=== PATIENT | male | born 1970 | race Two or more races ===

== ENCOUNTER 2023-07-25 05:37 | Day surgery (SDC) | payer OTHER ==
[~2023-07-25 05:37] MED LIST: GABAPENTIN300 M2 PO; PAROXETINE PO
[2023-07-25] MEDS ORDERED: TRAM1TAB98 PO (14:32)
== END 2023-07-25 17:50 | disposition home or self-care (01) ==
LOC: CIR.AMB 05:37
PROVIDERS: ATTEND Surgery
DX: C18.4 Malignant neoplasm of transverse colon (principal); E66.9 Obesity, unspecified; R59.0 Localized enlarged lymph nodes; Z20.822 Contact with and (suspected) exposure to COVID-19

== ENCOUNTER 2023-09-27 10:42 | Inpatient (IN) | payer OTHER ==
[~2023-09-27] VITALS: Ht 172.7 cm; Wt 127.0 kg
[~2023-09-27 10:42] MED LIST changes: +TRAM1TAB98 PO
[2023-09-27 13:54] LABS: HEMATOCRIT 36.2 % (39.0-48.0); HEMOGLOBIN 11.5 g/dL (13-16.00); MEAN CORPUSCULAR HEMOGLOBIN 21.9 pg (27.00-32.0); MEAN CORPUSCULAR HGB CONC 31.8 g/dl (32.0-36.0); PLATELET COUNT 384 K/uL (150-450); RED BLOOD COUNT 5.27 M/uL (4.00-6.00); RED CELL DISTRIBUTION WIDTH 23.6 % (11.5-14.5)
[2023-09-27 13:55] LABS: MEAN CELL VOLUME 68.7 fL (80.0-100.00)
[2023-09-27 14:13] LABS: INR 1.09; PARTIAL THROMBOPLASTIN TIME 31.4 SECONDS (22.0-34.0); PROTHROMBIN TIME 11.4 SECONDS (9.0-11.5)
[2023-09-27 14:19] LABS: ALBUMIN 3.8 gm/dL (3.4-5.0); BILIRUBIN TOTAL 1.04 mg/dL (0.3-1.2); BILIRUBIN,CONJUGATED 0.25 mg/dL (0.0-0.2); BILIRUBIN,UNCONJUGATED 0.79 mg/dL (0.0-0.6); CALCIUM 9.8 mg/dL (8.5-10.1); CREATININE SERUM 0.92 mg/dL (0.70-1.30); GFR 86.73; POTASSIUM 4.2 mEq/L (3.5-5.1); TOTAL PROTEIN 8.3 gm/dL (6.4-8.2)
[2023-09-27 21:02] LABS: LDH 307 U/L (87-241); PHOSPHOKINASE CREATININE 35 U/L (39-308)
[2023-09-27 21:14] LABS: PH,URINE 5.5 (5.0-8.0); URINE APPEARANCE Clear; URINE BILIRRUBIN Negative (NEGATIVE); URINE BLOOD Negative; URINE COLOR Dark Yellow; URINE GLUCOSE Negative (NEGATIVE); URINE LEUKOCYTE Negative; URINE NITRATE Negative; URINE PROTEIN Trace (NEGATIVE)
[2023-09-27 21:15] LABS: URINE EPITHELIAL CELLS 9.4 uL (0.0-38.8); URINE RBC 7.1 uL (0.0-20.8); URINE WBC 6.3 uL (0.0-23.2)
[2023-09-27 21:17] LABS: URINE BACTERIA 2.5 uL (0.0-1933)
[2023-09-28 08:27] LABS: HEMATOCRIT 35.1 % (39.0-48.0); MEAN CORPUSCULAR HGB CONC 31.7 g/dl (32.0-36.0); RED BLOOD COUNT 5.13 M/uL (4.00-6.00); RED CELL DISTRIBUTION WIDTH 23.3 % (11.5-14.5)
[2023-09-28 08:30] LABS: LDH 308 U/L (87-241); PHOSPHOKINASE CREATININE 38 U/L (39-308)
[2023-09-28 08:33] LABS: ALBUMIN 3.5 gm/dL (3.4-5.0); BILIRUBIN TOTAL 1.34 mg/dL (0.3-1.2); BILIRUBIN,CONJUGATED 0.31 mg/dL (0.0-0.2); BILIRUBIN,UNCONJUGATED 1.03 mg/dL (0.0-0.6); CALCIUM 8.8 mg/dL (8.5-10.1); CHOL HDL RATIO 2.7 (0-5.0); CREATININE SERUM 0.93 mg/dL (0.70-1.30); GFR 85.66; POTASSIUM 4.41 mEq/L (3.5-5.1); TOTAL PROTEIN 7.5 gm/dL (6.4-8.2)
[2023-09-28 08:36] LABS: INR 1.16
[2023-09-28 08:37] LABS: C-REACTIVE PROTEIN 4.62 MG/DL (0.00-0.29)
[2023-09-28 09:37] LABS: HEMOGLOBIN 11.1 g/dL (13-16.00); MEAN CELL VOLUME 68.4 fL (80.0-100.00); MEAN CORPUSCULAR HEMOGLOBIN 21.6 pg (27.00-32.0)
[2023-09-28 09:38] LABS: PLATELET COUNT 382 K/uL (150-450)
[2023-09-28 09:55] LABS: ERYTHROCYTE SEDIMENTATION RATE 108 mm/hr
[2023-09-28 12:28] LABS: LDH 326 U/L (87-241); PHOSPHOKINASE CREATININE 41 U/L (39-308)
[2023-09-28 14:16] LABS: PH,URINE 5.5 (5.0-8.0); URINE APPEARANCE Clear; URINE BILIRRUBIN Negative (NEGATIVE); URINE BLOOD Trace; URINE COLOR Dark Yellow; URINE GLUCOSE Negative (NEGATIVE); URINE LEUKOCYTE Negative; URINE NITRATE Negative
[2023-09-28 14:17] LABS: URINE BACTERIA 70.5 uL (0.0-1933); URINE EPITHELIAL CELLS 16.8 uL (0.0-38.8); URINE RBC 93.1 uL (0.0-20.8); URINE WBC 13.6 uL (0.0-23.2)
[2023-09-28 14:18] LABS: URINE PROTEIN 100 (NEGATIVE)
[2023-09-28 20:53] LABS: ob POSITIVE (NEGATIVE)
[2023-09-30 06:14] LABS: HEMATOCRIT 32.9 % (39.0-48.0); HEMOGLOBIN 10.4 g/dL (13-16.00); MEAN CORPUSCULAR HEMOGLOBIN 21.5 pg (27.00-32.0); MEAN CORPUSCULAR HGB CONC 31.6 g/dl (32.0-36.0); PLATELET COUNT 302 K/uL (150-450); RED BLOOD COUNT 4.83 M/uL (4.00-6.00); RED CELL DISTRIBUTION WIDTH 23.9 % (11.5-14.5)
[2023-09-30 06:50] LABS: MEAN CELL VOLUME 68.1 fL (80.0-100.00)
[2023-09-30 06:58] LABS: ALBUMIN 3.1 gm/dL (3.4-5.0); BILIRUBIN TOTAL 0.83 mg/dL (0.3-1.2); CALCIUM 8.7 mg/dL (8.5-10.1); CREATININE SERUM 1.01 mg/dL (0.70-1.30); GFR 77.88; GLOBULINA 3.9 G/DL (2.4-3.5); MAGNESIUM 2.3 mg/dL (1.8-2.4); PHOSPHOROUS 3.3 mg/dL (2.5-4.9); POTASSIUM 3.94 mEq/L (3.5-5.1)
[2023-09-30] MEDS ORDERED: INTEGRA PLUS C1 EAC1 (08:53)
[2023-09-30] MEDS ORDERED: PAROXETINE HCL10 MG (08:53)
[2023-09-30] MEDS ORDERED: GABAPENTIN300 M2 (08:53)
== END 2023-10-04 21:17 | disposition home or self-care (01) | DRG 389 ==
LOC: ER 10:42 → MEDJ 19:17
PROVIDERS: General Practice; ADMIT Specialist; ATTEND Specialist
PROC: BW21YZZ Computerized Tomography (CT Scan) of Abdomen and Pelvis using Other Contrast (ICD-10-PCS; principal; 2023-09-29)
DX: K56.690 Other partial intestinal obstruction (principal); C18.5 Malignant neoplasm of splenic flexure; C78.6 Secondary malignant neoplasm of retroperitoneum and peritoneum; E86.0 Dehydration

== ENCOUNTER 2023-10-23 00:07 | Inpatient (IN) | payer OTHER ==
[~2023-10-23] VITALS: Ht 172.7 cm; Wt 113.4 kg
[~2023-10-23 00:07] MED LIST changes: +GABAPENTIN300 M2; +INTEGRA PLUS C1 EAC1; +PAROXETINE HCL10 MG
[2023-10-23] MEDS ORDERED: PROMETHAZINE HCL 50 MG/ML AMPUL IM STA (01:28)
[2023-10-23] MEDS ORDERED: HYOSCYAMINE SULFATE 0.125 MG TAB.SUBL SL STA (01:28)
[2023-10-23] MEDS ORDERED: FAMOTIDINE/PF 20 MG/2 ML VIAL IV PUSH STA (01:30)
[2023-10-23] MEDS ORDERED: 0.9 % SODIUM CHLORIDE 1,000 ML IV ONE (01:30)
[2023-10-23] MEDS ORDERED: MEPERIDINE HCL/PF 50 MG/ML VIAL IM STA (01:31)
[2023-10-23 03:09] LABS: CALCIUM 9.4 mg/dL (8.5-10.1); CREATININE SERUM 0.88 mg/dL (0.70-1.30); GFR 91.3; HEMATOCRIT 37.1 % (39.0-48.0); MEAN CORPUSCULAR HEMOGLOBIN 22.3 pg (27.00-32.0); MEAN CORPUSCULAR HGB CONC 32.3 g/dl (32.0-36.0); PLATELET COUNT 258 K/uL (150-450); POTASSIUM 3.85 mEq/L (3.5-5.1); RED BLOOD COUNT 5.37 M/uL (4.00-6.00)
[2023-10-23 03:29] LABS: RED CELL DISTRIBUTION WIDTH 28.4 % (11.5-14.5)
[2023-10-23] MEDS ORDERED: MORPHINE SULFATE 4 MG/ML VIAL IV STA (08:28)
[2023-10-23] MEDS ORDERED: MORPHINE SULFATE 4 MG/ML CARTRIDGE IV STA (14:10)
[2023-10-23] MEDS ORDERED: ONDANSETRON HCL 4 MG in 0.9 % SODIUM CHLORIDE 50 ML IV PRN (17:45)
[2023-10-23] MEDS ORDERED: 0.9 % SODIUM CHLORIDE 1,000 ML IV SCH (17:45)
[2023-10-23 17:57] LABS: URINE APPEARANCE Cloudy; URINE BILIRRUBIN Negative (NEGATIVE); URINE BLOOD Negative; URINE COLOR Yellow; URINE GLUCOSE Negative (NEGATIVE); URINE LEUKOCYTE Trace; URINE NITRATE Negative; URINE PROTEIN Trace (NEGATIVE)
[2023-10-23] MEDS ORDERED: MEPERIDINE HCL/PF 25 MG/ML VIAL IM PRN ×2 (18:00→21:23)
[2023-10-23] MEDS ORDERED: ACETAMINOPHEN 500 MG GEL..CAP PO PRN (18:00)
[2023-10-23] MEDS ORDERED: PROMETHAZINE HCL 25 MG/ML AMPUL IM ONE (18:00)
[2023-10-23] MEDS ORDERED: PIPERACILLIN/TAZOBACTAM SODIUM 3.375 GM in DEXTROSE 5 % IN WATER 100 ML IV SCH (18:00)
[2023-10-23 18:01] LABS: URINE BACTERIA 27.7 uL (0.0-1933); URINE EPITHELIAL CELLS 36.3 uL (0.0-38.8); URINE RBC 23.8 uL (0.0-20.8); URINE WBC 5.4 uL (0.0-23.2)
[2023-10-23 18:20] LABS: URINE MUCUS MODERATE
[2023-10-23 19:40] LABS: INR 1.99; PARTIAL THROMBOPLASTIN TIME 34.9 SECONDS (22.0-34.0); PROTHROMBIN TIME 19.9 SECONDS (9.0-11.5)
[2023-10-23] MEDS ORDERED: MEPERIDINE HCL 25 MG/ML AMPUL IM STA (21:23)
[2023-10-24] MEDS ORDERED: FAMOTIDINE/PF 20 MG in 0.9 % SODIUM CHLORIDE 8 ML IV PUSH SCH (09:00)
[2023-10-24] MEDS ORDERED: AA 4.25%/CAL/LYTES/DEXT 5% 1,000 ML PERIFERAL SCH (17:00)
[2023-10-24 22:33] LABS: ANION GAP 14 (10.0-20.0); BLOOD UREA NITROGEN 18 mg/dL (7-18); BUN CREA RATIO 24 (7.0-25.0); CALCIUM 8.4 mg/dL (8.5-10.1); CARBON DIOXIDE 22 mEq/L (21-32); CHLORIDE 105 mmol/L (98-107); CREATININE SERUM 0.75 mg/dL (0.70-1.30); GFR 109.79; GLUCOSE FASTING 108 mg/dL (65-100); OSMOLALITY SERUM 276 MOSM/KG (275-295); POTASSIUM 4.06 mEq/L (3.5-5.1); SODIUM 137 mmol/L (136-145); TRIGLYCERIDES 78 mg/dL (0-150); VLDL 15 (0-39)
[2023-10-24 22:34] LABS: CHOL HDL RATIO 5.6 (0-5.0); CHOLESTEROL < 50 mg/dL (0-200); LDL 25 mg/dl (0-130)
[2023-10-24 22:35] LABS: HDL 9 mg/dl (40-60)
[2023-10-25] MEDS ORDERED: MORPHINE SULFATE 4 MG/ML CARTRIDGE IV PRN (08:30)
[2023-10-25 15:47] LABS: BILIRUBIN TOTAL 0.75 mg/dL (0.3-1.2); CALCIUM 8.4 mg/dL (8.5-10.1); CREATININE SERUM 0.7 mg/dL (0.70-1.30); GFR 118.89; GLOBULINA 4.1 G/DL (2.4-3.5); MAGNESIUM 2.1 mg/dL (1.8-2.4); POTASSIUM 3.95 mEq/L (3.5-5.1); TOTAL PROTEIN 6.1 gm/dL (6.4-8.2)
[2023-10-25 16:06] LABS: PHOSPHOROUS 1.9 mg/dL (2.5-4.9)
[2023-10-25 16:52] LABS: INR 1.39; PARTIAL THROMBOPLASTIN TIME 29.4 SECONDS (22.0-34.0); PROTHROMBIN TIME 14.2 SECONDS (9.0-11.5)
[2023-10-26 11:32] LABS: HEMATOCRIT 34.8 % (39.0-48.0); HEMOGLOBIN 11.1 g/dL (13-16.00); MEAN CELL VOLUME 70.2 fL (80.0-100.00); MEAN CORPUSCULAR HEMOGLOBIN 22.4 pg (27.00-32.0); PLATELET COUNT 316 K/uL (150-450); RED BLOOD COUNT 4.96 M/uL (4.00-6.00)
[2023-10-26 12:03] LABS: INR 1.32; PROTHROMBIN TIME 13.6 SECONDS (9.0-11.5)
[2023-10-26 12:24] LABS: ALBUMIN 1.9 gm/dL (3.4-5.0); BILIRUBIN TOTAL 0.68 mg/dL (0.3-1.2); CALCIUM 8.4 mg/dL (8.5-10.1); CREATININE SERUM 0.75 mg/dL (0.70-1.30); GFR 109.79; GLOBULINA 4.3 G/DL (2.4-3.5); POTASSIUM 4.94 mEq/L (3.5-5.1); TOTAL PROTEIN 6.2 gm/dL (6.4-8.2)
[2023-10-27 07:36] LABS: HEMATOCRIT 33.9 % (39.0-48.0); HEMOGLOBIN 10.9 g/dL (13-16.00); MEAN CORPUSCULAR HEMOGLOBIN 22.3 pg (27.00-32.0); MEAN CORPUSCULAR HGB CONC 32.1 g/dl (32.0-36.0); PLATELET COUNT 280 K/uL (150-450); RED BLOOD COUNT 4.88 M/uL (4.00-6.00)
[2023-10-27 08:13] LABS: INR 1.54; PROTHROMBIN TIME 15.7 SECONDS (9.0-11.5)
[2023-10-27 09:00] LABS: MEAN CELL VOLUME 69.6 fL (80.0-100.00); RED CELL DISTRIBUTION WIDTH 29.6 % (11.5-14.5)
[2023-10-27] MEDS ORDERED: MORPHINE SULFATE 4 MG/ML CARTRIDGE IV PRN (09:30)
[2023-10-28 07:23] LABS: HEMATOCRIT 31.2 % (39.0-48.0); HEMOGLOBIN 9.9 g/dL (13-16.00); MEAN CORPUSCULAR HEMOGLOBIN 22.1 pg (27.00-32.0); MEAN CORPUSCULAR HGB CONC 31.8 g/dl (32.0-36.0); PLATELET COUNT 264 K/uL (150-450); RED BLOOD COUNT 4.48 M/uL (4.00-6.00)
[2023-10-28 07:42] LABS: ALBUMIN 1.6 gm/dL (3.4-5.0); ALKALINE PHOSPHATASE 58 U/L (50-136); ALT/SGPT 15 U/L (12-78); AST/SGOT 50 U/L (15-37); BILIRUBIN TOTAL 0.6 mg/dL (0.3-1.2); BILIRUBIN,CONJUGATED 0.24 mg/dL (0.0-0.2); BILIRUBIN,UNCONJUGATED 0.36 mg/dL (0.0-0.6); CALCIUM 7.8 mg/dL (8.5-10.1); CREATININE SERUM 0.73 mg/dL (0.70-1.30); GFR 113.27; GLOBULINA 4.2 G/DL (2.4-3.5); MAGNESIUM 2.3 mg/dL (1.8-2.4); PHOSPHOROUS 2.4 mg/dL (2.5-4.9); POTASSIUM 4.37 mEq/L (3.5-5.1); TOTAL IRON BINDING CAPACITY 126 ug/dl (250-450); TOTAL PROTEIN 5.8 gm/dL (6.4-8.2); TRIGLYCERIDES 112 mg/dL (0-150); VLDL 22 (0-39)
[2023-10-28 07:47] LABS: CHOL HDL RATIO 7.1 (0-5.0); CHOLESTEROL < 50 mg/dL (0-200); HDL 7 mg/dl (40-60); LDL 21 mg/dl (0-130)
[2023-10-28 08:15] LABS: INR 1.36; PARTIAL THROMBOPLASTIN TIME 37.4 SECONDS (22.0-34.0)
[2023-10-28 09:14] LABS: UREA CLEARANCE 48.9 ML/MIN
[2023-10-28 09:47] LABS: MEAN CELL VOLUME 69.6 fL (80.0-100.00); RED CELL DISTRIBUTION WIDTH 29.1 % (11.5-14.5)
[2023-10-28] MEDS ORDERED: BUPIVACAINE HCL/PF 0.5% 30ML ML ONE (17:12)
[2023-10-28] MEDS ORDERED: DEXTROSE 50 % IN WATER 0.5 G/ML DISP.SYRIN IV PRN (17:15)
[2023-10-28] MEDS ORDERED: RINGERS SOLUTION,LACTATED 1,000 ML IV SCH (17:15)
[2023-10-28] MEDS ORDERED: OxyCODONE HCL 5 MG TABLET (ROXICODONE) PO PRN (17:15)
[2023-10-28] MEDS ORDERED: ONDANSETRON HCL 2 MG/ML VIAL IV PRN (17:15)
[2023-10-28] MEDS ORDERED: MORPHINE SULFATE 4 MG/ML VIAL IV PRN (17:15)
[2023-10-28] MEDS ORDERED: ACETAMINOPHEN 500 MG GEL..CAP PO SCH (20:00)
[2023-10-28 20:27] LABS: HEMATOCRIT 36.9 % (39.0-48.0); HEMOGLOBIN 11.5 g/dL (13-16.00); MEAN CELL VOLUME 71.4 fL (80.0-100.00); MEAN CORPUSCULAR HEMOGLOBIN 22.3 pg (27.00-32.0); MEAN CORPUSCULAR HGB CONC 31.3 g/dl (32.0-36.0); PLATELET COUNT 365 K/uL (150-450); RED BLOOD COUNT 5.16 M/uL (4.00-6.00)
[2023-10-28 20:31] LABS: RED CELL DISTRIBUTION WIDTH 29.6 % (11.5-14.5)
[2023-10-28] MEDS ORDERED: FAMOTIDINE/PF 20 MG/2 ML VIAL IV PUSH SCH (21:00)
[2023-10-28] MEDS ORDERED: INSULIN LISPRO 1,000 UNIT/10 ML UNITS SUBCUTANEO SCH (21:00)
[2023-10-28] MEDS ORDERED: FentaNYL CITRATE/PF 50MCG/ML 2ML VIAL IJ ONE (22:00)
[2023-10-28] MEDS ORDERED: FentaNYL CITRATE/PF 50MCG/ML 2ML VIAL IJ SCH (22:15)
[2023-10-28] MEDS ORDERED: FentaNYL CITRATE/PF 1,000 MCG in 0.9 % SODIUM CHLORIDE 100 ML IV SCH (22:30)
[2023-10-28 22:37] LABS: ABG PH 7.364 (7.35-7.45); ABG PO2 84.6 mmHg (80-100); ABG pCO2 28.6 mmHg (35-45); BASE EXCESS -7.8 mmol/l; SaO2 95.6 %; Tco2 16.9 mmol/l; allen test SATISFACTORY; o2 70 %; puncture site RADIAL RIGHT
[2023-10-28] MEDS ORDERED: 0.9 % SODIUM CHLORIDE 1,000 ML IV SCH (23:15)
[2023-10-29] MEDS ORDERED: ANIDULAFUNGIN 100 MG VIAL IV ONE
[2023-10-29] MEDS ORDERED: GABAPENTIN 300 MG CAPSULE PO SCH (01:00)
[2023-10-29] MEDS ORDERED: METRONIDAZOLE/SODIUM CHLORIDE 500 MG/100 ML PIGGYBACK IV SCH (01:00)
[2023-10-29 06:23] LABS: HEMATOCRIT 33.8 % (39.0-48.0); HEMOGLOBIN 10.6 g/dL (13-16.00); MEAN CORPUSCULAR HEMOGLOBIN 22.2 pg (27.00-32.0); MEAN CORPUSCULAR HGB CONC 31.3 g/dl (32.0-36.0); PLATELET COUNT 275 K/uL (150-450); RED BLOOD COUNT 4.76 M/uL (4.00-6.00)
[2023-10-29 06:36] LABS: ABG PH 7.397 (7.35-7.45); ABG PO2 260.7 mmHg (80-100); ABG pCO2 27.6 mmHg (35-45); BASE EXCESS -6.6 mmol/l; BICARBONATE 16.6 mmol/l (23-25); SaO2 99.8 %
[2023-10-29 06:37] LABS: Tco2 17.4 mmol/l; allen test SATISFACTORY; o2 70 %; puncture site RADIAL RIGHT
[2023-10-29 07:04] LABS: ALBUMIN 1.2 gm/dL (3.4-5.0); CALCIUM 6.9 mg/dL (8.5-10.1); CREATININE SERUM 1.44 mg/dL (0.70-1.30); GFR 51.72; MAGNESIUM 1.9 mg/dL (1.8-2.4); PHOSPHOROUS 3.4 mg/dL (2.5-4.9); POTASSIUM 5.33 mEq/L (3.5-5.1)
[2023-10-29] MEDS ORDERED: MEROPENEM 500 MG/VIAL VIAL IV SCH (08:00)
[2023-10-29 08:14] LABS: RED CELL DISTRIBUTION WIDTH 28.9 % (11.5-14.5)
[2023-10-29] MEDS ORDERED: HYOSCYAMINE SULFATE 0.125 MG TAB.SUBL SL SCH (09:00)
[2023-10-29] MEDS ORDERED: ANIDULAFUNGIN 100 MG VIAL IV SCH ×2 (12:00→21:00)
[2023-10-29] MEDS ORDERED: 0.9 % SODIUM CHLORIDE 1,000 ML IV ONE (14:00)
[2023-10-29] MEDS ORDERED: NOREPINEPHRINE BITARTRATE 8 MG in DEXTROSE 5 % IN WATER 250 ML IV SCH (14:15)
[2023-10-29] MEDS ORDERED: 0.9 % SODIUM CHLORIDE 1,000 ML IV SCH (16:00)
[2023-10-29] MEDS ORDERED: ENOXAPARIN SODIUM 40 MG/0.4 ML SYRINGE SUBCUTANEO SCH (17:00)
[2023-10-29] MEDS ORDERED: POLYETHYLENE GLYCOL 3350 17 GM BLIST.PACK PO SCH (17:00)
[2023-10-30] MEDS ORDERED: MEROPENEM 1,000 MG VIAL IV SCH ×2 (01:00→09:45)
[2023-10-30 06:08] LABS: HEMATOCRIT 26.1 % (39.0-48.0); MEAN CELL VOLUME 71.5 fL (80.0-100.00); MEAN CORPUSCULAR HGB CONC 31.9 g/dl (32.0-36.0); PLATELET COUNT 225 K/uL (150-450); RED BLOOD COUNT 3.66 M/uL (4.00-6.00)
[2023-10-30 06:32] LABS: ABG PO2 108.7 mmHg (80-100); ABG pCO2 35.1 mmHg (35-45)
[2023-10-30 06:33] LABS: BASE EXCESS -2.2 mmol/l; BICARBONATE 21.7 mmol/l (23-25); SaO2 98.2 %; Tco2 22.8 mmol/l; allen test SATISFACTORY; o2 40 %; puncture site RADIAL RIGHT
[2023-10-30 06:37] LABS: ALBUMIN 1.1 gm/dL (3.4-5.0); BILIRUBIN TOTAL 1.14 mg/dL (0.3-1.2); CALCIUM 6.8 mg/dL (8.5-10.1); CREATININE SERUM 0.68 mg/dL (0.70-1.30); GFR 122.94; GLOBULINA 3.3 G/DL (2.4-3.5); POTASSIUM 4.07 mEq/L (3.5-5.1); TOTAL PROTEIN 4.4 gm/dL (6.4-8.2)
[2023-10-30 07:14] LABS: MEAN CORPUSCULAR HEMOGLOBIN 22.6 pg (27.00-32.0); RED CELL DISTRIBUTION WIDTH 28.4 % (11.5-14.5)
[2023-10-30 07:15] LABS: HEMOGLOBIN 8.3 g/dL (13-16.00)
[2023-10-30] MEDS ORDERED: ENOXAPARIN SODIUM 40 MG/0.4 ML SYRINGE SUBCUTANEO SCH ×2 (09:00→17:00)
[2023-10-30 23:46] LABS: HEMATOCRIT 29.2 % (39.0-48.0); HEMOGLOBIN 9.3 g/dL (13-16.00); MEAN CELL VOLUME 73.4 fL (80.0-100.00); MEAN CORPUSCULAR HEMOGLOBIN 23.4 pg (27.00-32.0); MEAN CORPUSCULAR HGB CONC 31.9 g/dl (32.0-36.0); PLATELET COUNT 213 K/uL (150-450); RED BLOOD COUNT 3.97 M/uL (4.00-6.00)
[2023-10-30 23:47] LABS: RED CELL DISTRIBUTION WIDTH 27.3 % (11.5-14.5)
[2023-10-31 08:59] LABS: ABG PH 7.463 (7.35-7.45); ABG pCO2 31.9 mmHg (35-45); SaO2 99.2 %
[2023-10-31 09:00] LABS: BASE EXCESS -0.5 mmol/l; BICARBONATE 22.4 mmol/l (23-25); Tco2 23.3 mmol/l; o2 40 %
[2023-10-31 09:01] LABS: allen test SATISFACTORY; puncture site RADIAL RIGHT
[2023-10-31] MEDS ORDERED: FUROsemide 40 MG/4 ML VIAL IV STA (10:25)
[2023-10-31 10:30] LABS: ABG PH 7.448 (7.35-7.45); ABG PO2 90.3 mmHg (80-100); ABG pCO2 33.8 mmHg (35-45); BASE EXCESS -0.4 mmol/l; SaO2 97.3 %
[2023-10-31 10:31] LABS: BICARBONATE 22.9 mmol/l (23-25); Tco2 23.9 mmol/l
[2023-10-31 10:32] LABS: o2 30 %; puncture site RADIAL RIGHT
[2023-10-31 10:33] LABS: allen test SATISFACTORY
[2023-10-31] MEDS ORDERED: MORPHINE SULFATE 4 MG/ML CARTRIDGE IV PRN (19:30)
[2023-11-01 05:44] LABS: HEMATOCRIT 29.6 % (39.0-48.0); HEMOGLOBIN 9.5 g/dL (13-16.00); MEAN CELL VOLUME 73.6 fL (80.0-100.00); MEAN CORPUSCULAR HEMOGLOBIN 23.7 pg (27.00-32.0); MEAN CORPUSCULAR HGB CONC 32.2 g/dl (32.0-36.0); PLATELET COUNT 272 K/uL (150-450); RED BLOOD COUNT 4.02 M/uL (4.00-6.00); RED CELL DISTRIBUTION WIDTH 27.7 % (11.5-14.5)
[2023-11-01 06:36] LABS: ALBUMIN 1.3 gm/dL (3.4-5.0); BILIRUBIN TOTAL 0.91 mg/dL (0.3-1.2); CALCIUM 7.8 mg/dL (8.5-10.1); CREATININE SERUM 0.45 mg/dL (0.70-1.30); GFR 197.96; GLOBULINA 4.3 G/DL (2.4-3.5); POTASSIUM 4.24 mEq/L (3.5-5.1); TOTAL PROTEIN 5.6 gm/dL (6.4-8.2)
[2023-11-03 07:31] LABS: ALBUMIN 1.3 gm/dL (3.4-5.0); BILIRUBIN TOTAL 0.73 mg/dL (0.3-1.2); CREATININE SERUM 0.41 mg/dL (0.70-1.30); GFR 220.41; GLOBULINA 4.3 G/DL (2.4-3.5); POTASSIUM 4.61 mEq/L (3.5-5.1); TOTAL PROTEIN 5.6 gm/dL (6.4-8.2)
[2023-11-03 09:17] LABS: HEMATOCRIT 30.5 % (39.0-48.0); HEMOGLOBIN 9.7 g/dL (13-16.00); MEAN CELL VOLUME 74.4 fL (80.0-100.00); MEAN CORPUSCULAR HEMOGLOBIN 23.6 pg (27.00-32.0); MEAN CORPUSCULAR HGB CONC 31.8 g/dl (32.0-36.0); PLATELET COUNT 321 K/uL (150-450); RED BLOOD COUNT 4.11 M/uL (4.00-6.00); RED CELL DISTRIBUTION WIDTH 27.2 % (11.5-14.5)
[2023-11-03] MEDS ORDERED: DEXTROSE 10% IV ONE (17:00)
[2023-11-03] MEDS ORDERED: WATER IV ONE (17:00)
[2023-11-04] MEDS ORDERED: KETOROLAC TROMETHAMINE 30 MG VIAL IU PRN (08:00)
[2023-11-04] MEDS ORDERED: AMINO ACIDS 1 EACH TABLET PO SCH ×2 (11:48→14:04)
[2023-11-04] MEDS ORDERED: CHOLESTYRAMINE/ASPARTAME LIGHT 4 G/PKT PACKET PO SCH (13:00)
[2023-11-05] MEDS ORDERED: METRONIDAZOLE/SODIUM CHLORIDE 500 MG/100 ML PIGGYBACK IV SCH (01:00)
[2023-11-05 06:59] LABS: HEMATOCRIT 35.1 % (39.0-48.0); HEMOGLOBIN 11.5 g/dL (13-16.00); MEAN CELL VOLUME 73.6 fL (80.0-100.00); MEAN CORPUSCULAR HEMOGLOBIN 24.2 pg (27.00-32.0); MEAN CORPUSCULAR HGB CONC 32.9 g/dl (32.0-36.0); PLATELET COUNT 416 K/uL (150-450); RED BLOOD COUNT 4.77 M/uL (4.00-6.00)
[2023-11-05 07:07] LABS: ALBUMIN 1.8 gm/dL (3.4-5.0); BILIRUBIN TOTAL 1.11 mg/dL (0.3-1.2); CALCIUM 8.7 mg/dL (8.5-10.1); CREATININE SERUM 0.6 mg/dL (0.70-1.30); GFR 142.04; GLOBULINA 5.3 G/DL (2.4-3.5); POTASSIUM 4.6 mEq/L (3.5-5.1); TOTAL PROTEIN 7.1 gm/dL (6.4-8.2)
[2023-11-05 07:09] LABS: C-REACTIVE PROTEIN 15.2 MG/DL (0.00-0.29)
[2023-11-05] MEDS ORDERED: LOPERAMIDE HCL 2 MG CAPSULE PO SCH (09:00)
[2023-11-05] MEDS ORDERED: CEFTRIAXONE SODIUM 2,000 MG in 0.9 % SODIUM CHLORIDE 100 ML IV SCH (09:00)
[2023-11-05] MEDS ORDERED: TAMSULOSIN HCL 0.4 MG CAP PO ONE (23:45)
[2023-11-06] MEDS ORDERED: TRAMADOL HCL 50 MG TABLET PO PRN (08:00)
[2023-11-06] MEDS ORDERED: TAMSULOSIN HCL 0.4 MG CAP PO SCH (09:00)
[2023-11-06] MEDS ORDERED: LOPERAMIDE HCL 2 MG CAPSULE PO SCH (09:00)
[2023-11-06] MEDS ORDERED: NYSTATIN 15 GM,SILVER SULFADIAZINE 50 GM,ZINC OXIDE 30 GM TOP SCH (10:00)
[2023-11-06] MEDS ORDERED: KETOROLAC TROMETHAMINE 30 MG VIAL IV PRN (11:30)
[2023-11-07] MEDS ORDERED: LOPERAMIDE HCL 2 MG CAPSULE PO SCH (13:00)
[2023-11-07 15:19] LABS: HEMATOCRIT 34.7 % (39.0-48.0); HEMOGLOBIN 11.2 g/dL (13-16.00); MEAN CELL VOLUME 74.7 fL (80.0-100.00); MEAN CORPUSCULAR HEMOGLOBIN 24.1 pg (27.00-32.0); MEAN CORPUSCULAR HGB CONC 32.3 g/dl (32.0-36.0); PLATELET COUNT 461 K/uL (150-450); RED BLOOD COUNT 4.64 M/uL (4.00-6.00)
[2023-11-07 15:27] LABS: CALCIUM 8.5 mg/dL (8.5-10.1); CREATININE SERUM 0.88 mg/dL (0.70-1.30); GFR 91.3; PHOSPHOROUS 3.5 mg/dL (2.5-4.9); POTASSIUM 4.3 mEq/L (3.5-5.1)
[2023-11-07 15:30] LABS: RED CELL DISTRIBUTION WIDTH 27.2 % (11.5-14.5)
[2023-11-07] MEDS ORDERED: FentaNYL CITRATE/PF 50MCG/ML 2ML VIAL IJ ONE (20:15)
[2023-11-07] MEDS ORDERED: MIDAZOLAM HCL 2 MG/2 ML VIAL IV ONE (20:15)
[2023-11-08] MEDS ORDERED: METOPROLOL SUCCINATE 25 MG TAB.SR.24H PO SCH (09:00)
[2023-11-09 08:24] LABS: HEMATOCRIT 34.3 % (39.0-48.0); HEMOGLOBIN 11.2 g/dL (13-16.00); MEAN CELL VOLUME 76.6 fL (80.0-100.00); MEAN CORPUSCULAR HGB CONC 32.7 g/dl (32.0-36.0); RED BLOOD COUNT 4.48 M/uL (4.00-6.00)
[2023-11-09 08:47] LABS: RED CELL DISTRIBUTION WIDTH 27.6 % (11.5-14.5)
[2023-11-09 08:49] LABS: PLATELET COUNT 473 K/uL (150-450)
[2023-11-09] MEDS ORDERED: ACETAMINOPHEN 325 MG TABLET PO PRN (10:15)
[2023-11-09] MEDS ORDERED: DIPHENOXYLATE HCL/ATROPINE 1 UDTAB TABLET PO SCH (13:00)
[2023-11-10] MEDS ORDERED: 0.9 % SODIUM CHLORIDE 1,000 ML IV SCH (06:15)
[2023-11-10] MEDS ORDERED: CYCLOBENZAPRINE HCL 5 MG TABLET PO SCH ×2 (09:55→10:55)
[2023-11-11 07:35] LABS: HEMOGLOBIN 11.2 g/dL (13-16.00); MEAN CELL VOLUME 76.8 fL (80.0-100.00); MEAN CORPUSCULAR HEMOGLOBIN 25.3 pg (27.00-32.0); PLATELET COUNT 466 K/uL (150-450); RED BLOOD COUNT 4.42 M/uL (4.00-6.00)
[2023-11-11 07:37] LABS: RED CELL DISTRIBUTION WIDTH 27.3 % (11.5-14.5)
[2023-11-11 08:00] LABS: ALBUMIN 2.2 gm/dL (3.4-5.0); BILIRUBIN TOTAL 0.62 mg/dL (0.3-1.2); CALCIUM 9.2 mg/dL (8.5-10.1); CREATININE SERUM 0.77 mg/dL (0.70-1.30); GFR 106.51; GLOBULINA 4.6 G/DL (2.4-3.5); POTASSIUM 4.99 mEq/L (3.5-5.1); TOTAL PROTEIN 6.8 gm/dL (6.4-8.2)
[2023-11-11] MEDS ORDERED: KETOROLAC TROMETHAMINE 30 MG VIAL IV ONE (13:30)
[2023-11-11] MEDS ORDERED: ACETAMINOPHEN 500 MG GEL..CAP PO PRN (14:15)
[2023-11-11] MEDS ORDERED: ORPHENADRINE CITRATE 100 MG TABLET PO PRN (22:00)
[2023-11-12] MEDS ORDERED: CEFTRIAXONE SODIUM 2,000 MG VIAL ONE ×2 (06:45→07:29)
[2023-11-12] MEDS ORDERED: 0.9 % SODIUM CHLORIDE 1,000 ML IV SCH (18:00)
[2023-11-13] MEDS ORDERED: SUCRALFATE 1 G TABLET PO SCH (09:00)
[2023-11-13] MEDS ORDERED: PANTOPRAZOLE SODIUM 40 MG TABLET.DR PO SCH (09:00)
[2023-11-13] MEDS ORDERED: NYSTATIN 5 ML BLIST.PACK PO SCH (12:00)
[2023-11-13] MEDS ORDERED: FAMOtidine 40 MG TABLET PO SCH (21:00)
[2023-11-14 06:26] LABS: HEMATOCRIT 28.3 % (39.0-48.0); HEMOGLOBIN 9.6 g/dL (13-16.00); MEAN CELL VOLUME 78.2 fL (80.0-100.00); MEAN CORPUSCULAR HEMOGLOBIN 26.4 pg (27.00-32.0); MEAN CORPUSCULAR HGB CONC 33.8 g/dl (32.0-36.0); PLATELET COUNT 325 K/uL (150-450); RED BLOOD COUNT 3.62 M/uL (4.00-6.00)
[2023-11-14 06:35] LABS: RED CELL DISTRIBUTION WIDTH 27.5 % (11.5-14.5)
[2023-11-14 06:54] LABS: ALBUMIN 1.9 gm/dL (3.4-5.0); CALCIUM 8.5 mg/dL (8.5-10.1); CREATININE SERUM 0.42 mg/dL (0.70-1.30); GFR 214.37; PHOSPHOROUS 3.2 mg/dL (2.5-4.9)
[2023-11-14 06:55] LABS: POTASSIUM 4.25 mEq/L (3.5-5.1)
[2023-11-14] MEDS ORDERED: FAMOTIDINE/PF 20 MG/2 ML VIAL IV PUSH SCH (22:08)
[2023-11-14] MEDS ORDERED: ONDANSETRON HCL 2 MG/ML VIAL IV PRN (22:15)
[2023-11-16] MEDS ORDERED: LOPERAMIDE HCL 2 MG CAPSULE PO SCH (17:00)
[2023-11-16] MEDS ORDERED: DIPHENOXYLATE HCL/ATROPINE 1 UDTAB TABLET PO SCH (17:00)
[2023-11-17] MEDS ORDERED: LOPERAMIDE HCL 2 MG CAPSULE PO SCH (09:00)
[2023-11-17] MEDS ORDERED: DIPHENOXYLATE HCL/ATROPINE 1 UDTAB TABLET PO SCH (09:00)
[2023-11-17] MEDS ORDERED: OxyCODONE HCL/APAP UD (PERCOCET) PO STA (12:09)
[2023-11-17] MEDS ORDERED: OxyCODONE HCL/APAP UD (PERCOCET) PO PRN (12:15)
[2023-11-18 18:04] LABS: INR 1.31; PARTIAL THROMBOPLASTIN TIME 31.1 SECONDS (22.0-34.0); PROTHROMBIN TIME 13.5 SECONDS (9.0-11.5)
[2023-11-20 07:08] LABS: HEMATOCRIT 26.8 % (39.0-48.0); MEAN CELL VOLUME 79.6 fL (80.0-100.00); MEAN CORPUSCULAR HGB CONC 33.4 g/dl (32.0-36.0); PLATELET COUNT 280 K/uL (150-450); RED BLOOD COUNT 3.36 M/uL (4.00-6.00)
[2023-11-20 07:13] LABS: MEAN CORPUSCULAR HEMOGLOBIN 26.4 pg (27.00-32.0); RED CELL DISTRIBUTION WIDTH 28.6 % (11.5-14.5)
[2023-11-20 07:14] LABS: HEMOGLOBIN 8.9 g/dL (13-16.00)
[2023-11-20 07:27] LABS: BILIRUBIN TOTAL 0.34 mg/dL (0.3-1.2); CALCIUM 8.3 mg/dL (8.5-10.1); CREATININE SERUM 0.34 mg/dL (0.70-1.30); GFR 273.57; GLOBULINA 3.6 G/DL (2.4-3.5); POTASSIUM 3.38 mEq/L (3.5-5.1); TOTAL PROTEIN 5.6 gm/dL (6.4-8.2)
[2023-11-20 07:28] LABS: MAGNESIUM 1.4 mg/dL (1.8-2.4)
[2023-11-20] MEDS ORDERED: SIMETHICONE 125 MG CAPSULE PO SCH (09:00)
[2023-11-20] MEDS ORDERED: LOPERAMIDE HCL 2 MG CAPSULE PO SCH (09:00)
[2023-11-20] MEDS ORDERED: DIPHENOXYLATE HCL/ATROPINE 1 UDTAB TABLET PO SCH (09:00)
[2023-11-20] MEDS ORDERED: ONDANSETRON HCL 2 MG/ML VIAL ONE (11:16)
[2023-11-20] MEDS ORDERED: ONDANSETRON HCL 2 MG/ML VIAL IV PRN (11:45)
[2023-11-20] MEDS ORDERED: OxyCODONE HCL/APAP UD (PERCOCET) PO PRN (11:45)
[2023-11-20] MEDS ORDERED: MAGNESIUM SULFATE IN WATER 2 GM/50 ML PIGGYBAG IV ONE (17:30)
[2023-11-20] MEDS ORDERED: POTASSIUM CHLORIDE IN WATER 100 ML IV ONE (17:30)
[2023-11-23] MEDS ORDERED: OxyCODONE HCL/APAP UD (PERCOCET) PO PRN (09:45)
[2023-11-23] MEDS ORDERED: ONDANSETRON HCL 2 MG/ML VIAL IV PRN (10:15)
[2023-11-24 08:05] LABS: ALBUMIN 1.9 gm/dL (3.4-5.0); ALKALINE PHOSPHATASE 49 U/L (50-136); ANION GAP 8 (10.0-20.0); AST/SGOT 10 U/L (15-37); BILIRUBIN TOTAL 0.33 mg/dL (0.3-1.2); BLOOD UREA NITROGEN 7 mg/dL (7-18); BUN CREA RATIO 16 (7.0-25.0); CALCIUM 8.1 mg/dL (8.5-10.1); CARBON DIOXIDE 29 mEq/L (21-32); CHLORIDE 107 mmol/L (98-107); CREATININE SERUM 0.44 mg/dL (0.70-1.30); GFR 203.17; GLOBULINA 3.6 G/DL (2.4-3.5); GLUCOSE FASTING 107 mg/dL (65-100); OSMOLALITY SERUM 278 MOSM/KG (275-295); PHOSPHOROUS 3.7 mg/dL (2.5-4.9); POTASSIUM 3.66 mEq/L (3.5-5.1); SODIUM 140 mmol/L (136-145); TOTAL PROTEIN 5.5 gm/dL (6.4-8.2)
[2023-11-24 08:06] LABS: ALT/SGPT < 6 U/L (12-78)
[2023-11-24 10:20] LABS: HEMATOCRIT 26.5 % (39.0-48.0); MEAN CELL VOLUME 81.8 fL (80.0-100.00); MEAN CORPUSCULAR HEMOGLOBIN 27.6 pg (27.00-32.0); MEAN CORPUSCULAR HGB CONC 33.7 g/dl (32.0-36.0); PLATELET COUNT 278 K/uL (150-450); RED BLOOD COUNT 3.24 M/uL (4.00-6.00)
[2023-11-24 10:39] LABS: RED CELL DISTRIBUTION WIDTH 29.4 % (11.5-14.5)
[2023-11-25] MEDS ORDERED: DIATRIZOATE MEGLUMINE, SODIUM 30 ML BOTTLE PO ONE (05:00)
[2023-11-26] MEDS ORDERED: OxyCODONE HCL/APAP UD (PERCOCET) PO PRN (11:00)
[2023-11-27] MEDS ORDERED: LOPERAMIDE HCL 2 MG CAPSULE PO SCH (09:00)
[2023-11-28] MEDS ORDERED: PIPERACILLIN/TAZOBACTAM SODIUM 3.375 GM VIAL IV SCH (06:00)
[2023-11-28] MEDS ORDERED: DIPHENOXYLATE-1 EACH PO (13:49)
[2023-11-28] MEDS ORDERED: TRAM1TAB98 PO (13:49)
[2023-11-28] MEDS ORDERED: LOPERAMIDE2 MG PO (13:49)
[2023-11-28] MEDS ORDERED: PEPCID AC20 MG PO (13:49)
== END 2023-11-28 15:07 | disposition home or self-care (01) | DRG 853 ==
LOC: ER 00:07 → MEDJ 18:14 → ICU 10-28 21:50 → SURH 11-04 11:35
PROVIDERS: General Practice; Internal Medicine; Internal Medicine Critical Care Medicine; Internal Medicine Nephrology; Student in an Organized Health Care Education/Training Program; Surgery; ADMIT Internal Medicine; ATTEND Internal Medicine
PROC: 0D9670Z Drainage of Stomach with Drainage Device, Via Natural or Artificial Opening (ICD-10-PCS; 2023-10-23)
PROC: 8E0ZXY6 Isolation (ICD-10-PCS; 2023-10-23)
PROC: 02HV33Z Insertion of Infusion Device into Superior Vena Cava, Percutaneous Approach (ICD-10-PCS; 2023-10-26)
PROC: 3E0436Z Introduction of Nutritional Substance into Central Vein, Percutaneous Approach (ICD-10-PCS; 2023-10-26)
PROC: 0DTF0ZZ Resection of Right Large Intestine, Open Approach (ICD-10-PCS; 2023-10-28)
PROC: 0DJW0ZZ Inspection of Peritoneum, Open Approach (ICD-10-PCS; 2023-10-28)
PROC: 0W9G0ZZ Drainage of Peritoneal Cavity, Open Approach (ICD-10-PCS; 2023-10-28)
PROC: 0DBW0ZZ Excision of Peritoneum, Open Approach (ICD-10-PCS; 2023-10-28)
PROC: 0DQ80ZZ Repair Small Intestine, Open Approach (ICD-10-PCS; 2023-10-28)
PROC: 0DBU0ZZ Excision of Omentum, Open Approach (ICD-10-PCS; 2023-10-28)
PROC: 3E1M48Z Irrigation of Peritoneal Cavity using Irrigating Substance, Percutaneous Endoscopic Approach (ICD-10-PCS; 2023-10-28)
PROC: 0D1B0Z4 Bypass Ileum to Cutaneous, Open Approach (ICD-10-PCS; principal; 2023-10-28 12:00)
PROC: 0BH17EZ Insertion of Endotracheal Airway into Trachea, Via Natural or Artificial Opening (ICD-10-PCS; 2023-10-29)
PROC: 5A1945Z Respiratory Ventilation, 24-96 Consecutive Hours (ICD-10-PCS; 2023-10-29)
PROC: 30243N1 Transfusion of Nonautologous Red Blood Cells into Central Vein, Percutaneous Approach (ICD-10-PCS; 2023-10-30)
PROC: 0BP1XDZ Removal of Intraluminal Device from Trachea, External Approach (ICD-10-PCS; 2023-10-31)
PROC: 0WPGX0Z Removal of Drainage Device from Peritoneal Cavity, External Approach (ICD-10-PCS; 2023-11-06)
PROC: 0J9B30Z Drainage of Perineum Subcutaneous Tissue and Fascia with Drainage Device, Percutaneous Approach (ICD-10-PCS; 2023-11-07)
PROC: BW21ZZZ Computerized Tomography (CT Scan) of Abdomen and Pelvis (ICD-10-PCS; 2023-11-07)
PROC: B246ZZZ Ultrasonography of Right and Left Heart (ICD-10-PCS; 2023-11-08)
PROC: 4A12X4Z Monitoring of Cardiac Electrical Activity, External Approach (ICD-10-PCS; 2023-11-08)
PROC: BW21YZZ Computerized Tomography (CT Scan) of Abdomen and Pelvis using Other Contrast (ICD-10-PCS; 2023-11-15)
PROC: BW21YZZ Computerized Tomography (CT Scan) of Abdomen and Pelvis using Other Contrast (ICD-10-PCS; 2023-11-25)
DX: A41.9 Sepsis, unspecified organism (principal); J95.821 Acute postprocedural respiratory failure; K35.33 Acute appendicitis with perforation, localized peritonitis, and gangrene, with abscess; R65.21 Severe sepsis with septic shock; K56.50 Intestinal adhesions [bands], unspecified as to partial versus complete obstruction; L02.211 Cutaneous abscess of abdominal wall; R18.8 Other ascites; C78.6 Secondary malignant neoplasm of retroperitoneum and peritoneum; C18.2 Malignant neoplasm of ascending colon; E87.1 Hypo-osmolality and hyponatremia; I97.791 Other intraoperative cardiac functional disturbances during other surgery; D84.81 Immunodeficiency due to conditions classified elsewhere; T81.31XA Disruption of external operation (surgical) wound, not elsewhere classified, initial encounter; T81.43XA Infection following a procedure, organ and space surgical site, initial encounter; N17.8 Other acute kidney failure; D49.0 Neoplasm of unspecified behavior of digestive system; I95.89 Other hypotension; E86.1 Hypovolemia; E86.0 Dehydration; D64.89 Other specified anemias; B96.89 Other specified bacterial agents as the cause of diseases classified elsewhere; B96.20 Unspecified Escherichia coli [E. coli] as the cause of diseases classified elsewhere; Z92.21 Personal history of antineoplastic chemotherapy; Z53.31 Laparoscopic surgical procedure converted to open procedure